=== PATIENT | female | born 1950 | race Caucasian/White ===

== ENCOUNTER 2018-05-11 11:50 | Outpatient (CLI) | payer OTHER ==
[2015-01-26 19:12] VITALS: BP 106/64
[2018-05-11 12:59] LABS: eGFR (Non-African) > 60
== END 2018-05-11 11:52 ==
LOC: LAB 11:50
PROVIDERS: ATTEND Family Medicine
DX: E78.2 Mixed hyperlipidemia (principal)
CPT/HCPCS: 36415; 80053; 80061